=== PATIENT | female | born 1995 | race Two or more races ===

== ENCOUNTER 2019-04-05 11:29 | Emergency (ER) | payer OTHER ==
[~2019-04-05] VITALS: Ht 167.6 cm; Wt 68.0 kg
[~2019-04-05 11:29] MED LIST: IBUP-1060 PO; OXYC1TAB15 PO; PNV1TABL25 PO
[2019-04-05 11:30] VITALS: BP 151/93
[2019-04-05] MEDS ORDERED: HYDROcodone/APAP 5/325MG 1 TAB TABLET PO ONE (12:00)
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
[2019-04-05] MEDS ORDERED: NAPR-514 PO (13:45)
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
== END 2019-04-05 13:45 | disposition home or self-care (01) ==
LOC: EEVIPCON 11:29 → ER 11:29
DX: T74.91XA Unspecified adult maltreatment, confirmed, initial encounter (principal); S09.8XXA Other specified injuries of head, initial encounter; S80.211A Abrasion, right knee, initial encounter; Z98.890 Other specified postprocedural states; X58.XXXA Exposure to other specified factors, initial encounter; Y93.89 Activity, other specified; Y92.89 Other specified places as the place of occurrence of the external cause; Y99.8 Other external cause status
CPT/HCPCS: 70450; 70480; 72125; 99284